=== PATIENT | male | born 1980 | race Caucasian/White ===

== ENCOUNTER 2020-06-03 07:44 | Emergency (ER) | payer BC ==
[~2020-06-03] VITALS: Ht 177.8 cm; Wt 86.4 kg
[2020-06-03 07:54] VITALS: TEMP 98.3
[2020-06-03 08:47] LABS: STREP SCREEN NEGATIVE
[2020-06-03 09:10] VITALS: BP 143/78; PULSE 83
== END 2020-06-03 09:10 | disposition home or self-care (01) ==
LOC: COL.ER 07:44
PROVIDERS: Emergency Medicine
DX: R50.9 Fever, unspecified (principal); Z20.828 Contact with and (suspected) exposure to other viral communicable diseases